=== PATIENT | female | born 1985 ===

== ENCOUNTER → 2023-07-15 10:18 | Outpatient (REF) | payer BC, SELFPAY | LOC: PNTC 10:18 | PROVIDERS: ATTENDING PHYSICIAN Obstetrics & Gynecology | DX: O09.819 Supervision of pregnancy resulting from assisted reproductive technology, unspecified trimester (principal); O99.280 Endocrine, nutritional and metabolic diseases complicating pregnancy, unspecified trimester; O45.90 Premature separation of placenta, unspecified, unspecified trimester | CPT/HCPCS: 76805 ==

== ENCOUNTER → 2023-12-16 10:13 | Outpatient (REF) | payer BC, SELFPAY | LOC: PNTC 10:13 | PROVIDERS: ATTENDING PHYSICIAN Obstetrics & Gynecology | DX: O09.529 Supervision of elderly multigravida, unspecified trimester (principal) | CPT/HCPCS: 59025; 76815 ==

== ENCOUNTER 2023-12-23 08:05 | Inpatient (IN) | payer BC, SELFPAY ==
[2023-12-23 08:37] VITALS: BP 138/92; BMI 28.1
[2023-12-23 08:46] LABS: Hematocrit 33.2 % (37.0-47.0); Hemoglobin 11.8 g/dL (12.0-16.0); Mean Corp Hgb Conc. 35.5 g/dL (33.0-37.0); Mean Corpuscular Hgb 32.7 pg (27.0-31.0); Mean Platelet Volume 10.5 fL (7.4-10.4); Platelet Count 168 10^3/uL (130-400); Red Blood Cell Count 3.61 10^6/uL (4.20-5.40); Red Cell Dist. Width 12.9 % (11.5-14.5); White Blood Cell Count 7.1 10^3/uL (4.8-10.8)
[2023-12-23] MEDS: BICITRA 30 ML PO (09:50)
[2023-12-23] MEDS: TYLENOL 1000 MG PO (09:50)
[2023-12-23] MEDS: ANCEF 10 IV (09:50)
[2023-12-23] MEDS: TORADOL 15 MG IV ×2 (13:36→19:48)
[2023-12-23] MEDS: FEOSOL 325 MG PO (22:46)
[2023-12-23] MEDS: PRENATAL PLUS 1 TABLET PO (22:46)
[2023-12-23] MEDS: LEXAPRO 10 MG PO (22:46)
[2023-12-24] MEDS: TORADOL 15 MG IV ×2 (00:56→08:32)
[2023-12-24 04:29] LABS: Hematocrit 29.8 % (37.0-47.0); Hemoglobin 10.8 g/dL (12.0-16.0); Mean Corp Hgb Conc. 36.2 g/dL (33.0-37.0); Mean Corpuscular Volume 91.1 fL (81.0-99.0); Mean Platelet Volume 10.5 fL (7.4-10.4); Platelet Count 150 10^3/uL (130-400); Red Blood Cell Count 3.27 10^6/uL (4.20-5.40); Red Cell Dist. Width 12.8 % (11.5-14.5); White Blood Cell Count 9.8 10^3/uL (4.8-10.8)
[2023-12-24] MEDS: SYNTHROID 125 MCG PO (06:46)
--- NOTE | 2023-12-24 07:47 | W.PN.ANS.POP ---
Anesthesia Post Operative
- Anesthesia Post Op Note
Vital Signs Stable-See Nursing Note: Yes
Airway Patent: Yes
Adequate Pain Control: Yes
Change in Mental Status: No
Current Postoperative Nausea & Vomiting: No
Anesthesia Complications: No (no headache/ back pain)
General Anesthetic Recall: No
Unplanned Admission: No
Post Op Hydration Adequate: Yes
[2023-12-24] MEDS: SENOKOT-S 1 TABLET PO (08:32)
[2023-12-24] MEDS: PRENATAL PLUS 1 TABLET PO (08:32)
[2023-12-24] MEDS: FEOSOL 325 MG PO (08:32)
[2023-12-24 12:09] LABS: Syphilis/T. pallidum Ab Reflex Negative (Negative)
[2023-12-24] MEDS: MOTRIN 600 MG PO ×2 (15:24→21:35)
[2023-12-24] MEDS: TYLENOL 650 MG PO ×2 (15:24→21:34)
[2023-12-24] MEDS: LEXAPRO PO (15:24)
[2023-12-25] MEDS: TYLENOL 650 MG PO ×2 (03:57→08:01)
[2023-12-25] MEDS: MOTRIN 600 MG PO (03:58)
[2023-12-25] MEDS: SYNTHROID 125 MCG PO (05:51)
[2023-12-25] MEDS: PRENATAL PLUS PO (08:01)
[2023-12-25] MEDS: FEOSOL PO (08:01)
[2023-12-25] MEDS: LEXAPRO 10 MG PO (08:01)
--- NOTE | 2023-12-25 13:40 | W.DS.TRANS ---
DC Summary - [facility]
-
Discharge Instructions:
Discharge Diagnosis/Procedures rcs
Instructions:
Stand-Alone Forms: LDRP Delivery
Changes to Home Medications: No
Discharge Medications:
DC Medications w/original date entered in [facility]
Citracal 400 mg PO DAILY Supplement 12/23/23
Levoxyl 125 mcg PO DAILY Thyroid 12/23/23
Vitamin 1 tab PO DAILY Supplement 12/23/23
escitalopram oxalate 10 mg tablet (Lexapro) 10 mg PO DAILY Cough 12/23/23
ibuprofen 600 mg tablet 600 mg PO Q6HPRN PRN cramps #90 tabs 12/25/23
Home Medication Changes
Pending Results: No
Total time spent discharging patient (in min): 20
== END 2023-12-25 11:56 | disposition home or self-care (01) | DRG 788 ==
LOC: LDRP 08:05
PROVIDERS: ADMITTING PHYSICIAN Obstetrics & Gynecology; ATTENDING PHYSICIAN Obstetrics & Gynecology
PROC: 10D00Z1 Extraction of Products of Conception, Low, Open Approach (ICD-10-PCS; 2023-12-23)
DX: O34.211 Maternal care for low transverse scar from previous cesarean delivery (principal); Z37.0 Single live birth; O69.81X0 Labor and delivery complicated by cord around neck, without compression, not applicable or unspecified; O99.284 Endocrine, nutritional and metabolic diseases complicating childbirth; E89.0 Postprocedural hypothyroidism; O99.344 Other mental disorders complicating childbirth; F41.9 Anxiety disorder, unspecified; O99.824 Streptococcus B carrier state complicating childbirth; O99.892 Other specified diseases and conditions complicating childbirth; N97.9 Female infertility, unspecified; Z3A.39 39 weeks gestation of pregnancy; Z79.890 Hormone replacement therapy; Z79.899 Other long term (current) drug therapy; Z85.850 Personal history of malignant neoplasm of thyroid
CPT/HCPCS: 88307; 85027; 86780; 86850; 86900; 86901; C1765

== ENCOUNTER → 2024-05-15 14:53 | Outpatient (REF) | payer BC, SELFPAY | LOC: WDC 14:53 | PROVIDERS: ATTENDING PHYSICIAN Obstetrics & Gynecology; FAMILY PHYSICIAN Nurse Practitioner | DX: N63.21 Unspecified lump in the left breast, upper outer quadrant (principal) | CPT/HCPCS: 76642 ==

== ENCOUNTER → 2024-11-21 15:41 | Outpatient (REF) | payer BC, SELFPAY | LOC: RAD 15:41 | PROVIDERS: ATTENDING PHYSICIAN Obstetrics & Gynecology | DX: O26.851 Spotting complicating pregnancy, first trimester (principal) | CPT/HCPCS: 76801 ==

== ENCOUNTER 2024-11-23 06:25 | Day surgery (SDC) | payer BC, SELFPAY ==
[2024-11-23 09:40] VITALS: BMI 22.7
[2024-11-23 09:45] VITALS: BP 127/90
[2024-11-23 10:34] VITALS: BMI 22.7
== END 2024-11-23 12:00 | disposition home or self-care (01) ==
LOC: SDS 06:25
PROVIDERS: ATTENDING PHYSICIAN Obstetrics & Gynecology
DX: O03.4 Incomplete spontaneous abortion without complication (principal); Z53.09 Procedure and treatment not carried out because of other contraindication
CPT/HCPCS: 59812; 76830

== ENCOUNTER → 2025-04-09 06:54 | Outpatient (REF) | payer BC, SELFPAY | LOC: PNTC 06:54 | PROVIDERS: ATTENDING PHYSICIAN Obstetrics & Gynecology | DX: Z36.0 Encounter for antenatal screening for chromosomal anomalies (principal); Z36.82 Encounter for antenatal screening for nuchal translucency | CPT/HCPCS: 36415; 76801; 76813 ==

== ENCOUNTER → 2025-05-07 07:56 | Outpatient (REF) | payer BC, SELFPAY | LOC: PNTC 07:56 | PROVIDERS: ATTENDING PHYSICIAN Obstetrics & Gynecology | DX: O09.523 Supervision of elderly multigravida, third trimester (principal); O09.812 Supervision of pregnancy resulting from assisted reproductive technology, second trimester; O34.219 Maternal care for unspecified type scar from previous cesarean delivery; O43.212 Placenta accreta, second trimester | CPT/HCPCS: 76805; 93976 ==